=== PATIENT | female | born 1990 | race Caucasian/White ===

== ENCOUNTER → 2017-07-11 | Outpatient (CLI) | payer OTHER ==
--- NOTE | 2017-07-12 07:18 | REP ---
Left ankle series: Four views. History: Ankle injury. Findings: There is mild anterolateral soft tissue swelling. Ankle mortise is intact. No fracture is seen. Bones, joints and soft tissues are unremarkable. Impression: No fracture noted. Signed by Norberto Sethi MD 07/12/2017 08:47 A
== END ==
LOC: M WUC 16:04
PROVIDERS: ATTEND Physician Assistant
DX: S90.02XA Contusion of left ankle, initial encounter (principal); X58.XXXA Exposure to other specified factors, initial encounter; Y92.89 Other specified places as the place of occurrence of the external cause; Y93.89 Activity, other specified; Y99.8 Other external cause status